=== PATIENT | female | born 1970 | race Caucasian/White ===

== ENCOUNTER 2025-05-13 17:30 | Emergency (ER) | payer OTHER ==
[2025-05-13] MEDS: Ketorolac 15 MG/ML SDV IVPUSH ONE (19:36)
[2025-05-13] MEDS: Ondansetron 4 MG/2 ML SDV IVPUSH ONE (20:56)
== END 2025-05-13 20:50 | disposition home or self-care (01) ==
LOC: JP.ED 17:30
DX: S13.9XXA Sprain of joints and ligaments of unspecified parts of neck, initial encounter (principal); S43.401A Unspecified sprain of right shoulder joint, initial encounter; S29.9XXA Unspecified injury of thorax, initial encounter; S09.90XA Unspecified injury of head, initial encounter; Z79.899 Other long term (current) drug therapy; W01.198A Fall on same level from slipping, tripping and stumbling with subsequent striking against other object, initial encounter
CPT/HCPCS: 70450; 71046; 72125; 73030; 76377; 96374; 96375; 99284; J1885; J2270; J3360